=== PATIENT | male | born 1985 | race Hispanic/Latino ===

== ENCOUNTER 2018-10-16 19:36 | Emergency (ER) | payer OTHER ==
[2018-10-16 19:41] VITALS: BMI 23.6
[2018-10-16] MEDS ORDERED: Lidocaine 1% Inj (20ml) IJ STA (19:48)
[2018-10-16] MEDS ORDERED: Amoxicillin-Clav 875-125 mg Tab PO STA (19:48)
--- NOTE | 2018-10-16 19:52 | ED PDOC ---
Arrival/HPI <MynorJaspal - Last Filed: 10/17/18 05:39> - General Historian: Patient - History of Present Illness Narrative History of Present Illness (Text): 10/16/18 19:49 33 y/o male, no significant pmh, nkda, last tetanus under 2 years ago, c/o lt. hand 2nd digit laceration from dog bite x 2 hours. Pt. stated that he was trying to break up the fight between 2 dogs and the dog bite on the lt. hand 2nd digit which sustained laceration, dogs are up to date with the rabies vaccination, no difficulty moving the lt. hand and 2nd digit, no numbness or tinging, no other medical or psychological complaints. <Saw Villeda - Last Filed: 10/17/18 19:14> - General Chief Complaint: Bite Past Medical History - Provider Review Nursing Documentation Reviewed: Yes - Infectious Disease Hx of Infectious Diseases: None - Musculoskeletal/Rheumatological Other/Comment: osteochondroma - Psychiatric Hx Substance Use: No - Anesthesia Hx Anesthesia: No <Saw Villeda - Last Filed: 10/17/18 19:14> Family/Social History - Physician Review Nursing Documentation Reviewed: Yes Family/Social History: Unknown Family HX Smoking Status: Never Smoked Hx Alcohol Use: No Hx Substance Use: No <Saw Villeda - Last Filed: 10/17/18 19:14> Allergies/Home Meds <MynorJaspal - Last Filed: 10/17/18 05:39> <Saw Villeda - Last Filed: 10/17/18 19:14> Allergies/Adverse Reactions: Allergies No Known Allergies Allergy (Verified 10/16/18 19:40) Review of Systems - Review of Systems Constitutional: absent: Fatigue, Fevers Eyes: absent: Vision Changes ENT: absent: Hearing Changes Respiratory: absent: SOB, Cough Cardiovascular: absent: Chest Pain Gastrointestinal: absent: Abdominal Pain, Nausea, Vomiting Musculoskeletal: Arthralgias. absent: Back Pain, Neck Pain, Joint Swelling, Myalgias Skin: Laceration. absent: Rash, Pruritis, Skin Lesions, Abscess, Ulcer Neurological: absent: Headache, Dizziness Psychiatric: absent: Anxiety, Depression, Suicidal Ideation <Saw Villeda - Last Filed: 10/17/18 19:14> Physical Exam Vital Signs Temp Pulse Resp BP Pulse Ox 10/16/18 19:54 98.1 F 96 H 18 109/65 97 <Jaspal Lowe - Last Filed: 10/17/18 05:39> Vital Signs Reviewed: Yes - Systems Exam Head: Present: Atraumatic, Normocephalic Pupils: Present: PERRL Extroacular Muscles: Present: EOMI Conjunctiva: Present: Normal Mouth: Present: Moist Mucous Membranes Neck: Present: Normal Range of Motion Respiratory/Chest: Present: Clear to Auscultation, Good Air Exchange. No: Respiratory Distress, Accessory Muscle Use Cardiovascular: Present: Regular Rate and Rhythm, Normal S1, S2. No: Murmurs Abdomen: No: Tenderness, Distention, Peritoneal Signs Back: Present: Normal Inspection Upper Extremity: Present: Normal Inspection, Other (Lt. hand: visible 2nd digit dorsum laceration approx. 2.5cm intermediate depth, no swelling or deformity, FROM without limitation, sensation intact to sharp and dull, motor 5/5, +radial pulse, capillary refill< 2 seconds, neurovascular intact). No: Cyanosis, Edema Lower Extremity: Present: Normal Inspection. No: Edema Neurological: Present: GCS=15, CN II-XII Intact, Speech Normal Skin: Present: Warm, Dry, Rashes (superficial abrasion on the lt. hand 2nd digit less than 0.2cm diameter), Normal Color Psychiatric: Present: Alert, Oriented x 3, Normal Insight, Normal Concentration <Saw Villeda - Last Filed: 10/17/18 19:14> Medical Decision Making - RAD Interpretation Radiology Orders: 10/16/18 19:48 HAND LEFT 2ND DIGIT (FINGER) [RAD] Stat - Medication Orders Current Medication Orders: Discontinued Medications Amoxicillin/Clavulanate Potassium (Augmentin 875 Mg-125 Mg Tab) 1 tab PO STAT STA; Protocol Stop: 10/16/18 19:49 Last Admin: 10/16/18 19:56 Dose: 1 tab Lidocaine HCl (Lidocaine 1% (20ml)) 1 ml IJ STAT STA Stop: 10/16/18 19:49 Last Admin: 10/16/18 19:56 Dose: 1 ml Comments: administered by AFIA Villeda <Jaspal Lowe - Last Filed: 10/17/18 05:39> ED Course and Treatment: 10/16/18 19:52 -augmentin -xray 10/16/18 19:57 -Due to the size of the laceration and depth, explained to the patient that we would keep the would secondary healing as it is on the hand finger with high chance of infection 10/16/18 21:05 -Discharge home with augmentin, motrin for mild to moderate pain, percocet for severe pain, use neosporin starting day 3, wound needs to be check and dressing needs to be change in 2-3 days, keep it dry and clean for 2-3 days as well, see your own pmd and hand specialist within 2-3 days, return to the ER for any new or worsening signs or symptoms. - RAD Interpretation Radiology Orders: 10/16/18 19:48 HAND LEFT 2ND DIGIT (FINGER) [RAD] Stat PROCEDURE: Left Hand Radiographs. HISTORY: lt. hand 2nd digit dorsum laceration COMPARISON: None. TECHNIQUE: 3 views obtained. FINDINGS: BONES: Normal. No fracture. JOINTS: Normal. No osteoarthritic changes. SOFT TISSUES: Normal. OTHER FINDINGS: None. IMPRESSION: No acute findings It Service Technician: Radiologist - Medication Orders Current Medication Orders: Amoxicillin/Clavulanate Potassium (Augmentin 875 Mg-125 Mg Tab) 1 tab PO STAT STA; Protocol Stop: 10/16/18 19:49 Lidocaine HCl (Lidocaine 1% (20ml)) 1 ml IJ STAT STA Stop: 10/16/18 19:49 <Saw Villeda - Last Filed: 10/17/18 19:14> - PA / SPECIAL MACHINE STITCHER / Resident Statement EVELYN has reviewed & agrees with the documentation as recorded. EVELYN has examined the patient and agrees with the treatment plan. <Jaspal Lowe - Last Filed: 10/17/18 05:39> - PA / SPECIAL MACHINE STITCHER / Resident Statement EVELYN has reviewed & agrees with the documentation as recorded. EVELYN has examined the patient and agrees with the treatment plan. <Saw Villeda - Last Filed: 10/17/18 19:14> Disposition/Present on Arrival <Jaspal Lowe - Last Filed: 10/17/18 05:39> - Present on Arrival Any Indicators Present on Arrival: No History of DVT/PE: No History of Uncontrolled Diabetes: No Urinary Catheter: No History of Decub. Ulcer: No History Surgical Site Infection Following: None - Disposition Have Diagnosis and Disposition been Completed?: Yes Disposition Time: :53 Patient Plan: Discharge <Saw Villeda Q - Last Filed: 10/17/18 19:14> - Disposition Diagnosis: Dog bite, Finger laceration Disposition: HOME/ ROUTINE Condition: IMPROVED Additional Instructions: -Discharge home with augmentin, motrin for mild to moderate pain, percocet for severe pain, use neosporin starting day 3, wound needs to be check and dressing needs to be change in 2-3 days, keep it dry and clean for 2-3 days as well, see your own pmd and hand specialist within 2-3 days, return to the ER for any new or worsening signs or symptoms. Prescriptions: Amoxicillin/Clavulanate [Augmentin 875 MG-125 MG] 1 tab PO BID #20 tab Ibuprofen [Motrin Tab] 600 mg PO QID PRN #30 tab PRN Reason: Other oxyCODONE/Acetaminophen [Percocet 5/325 mg Tab] 1 tab PO QID #12 tab Referrals: FAMILY PROVIDER,NO [Non-Staff] - Follow up with primary Miryam Zhao MD [Staff Provider] - Follow up with primary Ezequiel Clemens MD [Staff Provider] - Follow up with primary Forms: [facility] (Greenlandic), WORK NOTE
[2018-10-16 19:55] VITALS: RESP 18
[2018-10-16 21:54] VITALS: BP 112/71; PULSE 88; TEMP 98.2; O2SAT 98
--- NOTE | 2018-10-17 11:41 | RAD ---
PROCEDURE: Left Hand Radiographs. HISTORY: lt. hand 2nd digit dorsum laceration COMPARISON: None. TECHNIQUE: 3 views obtained. FINDINGS: BONES: Normal. No fracture. JOINTS: Normal. No osteoarthritic changes. SOFT TISSUES: Normal. OTHER FINDINGS: None. IMPRESSION: No acute findings
== END 2018-10-16 21:54 | disposition home or self-care (01) ==
LOC: ED 19:36
DX: S61.211A Laceration without foreign body of left index finger without damage to nail, initial encounter (principal); W54.0XXA Bitten by dog, initial encounter